=== PATIENT | female | born 1940 | race Caucasian/White ===

== ENCOUNTER 2020-01-20 14:38 | Emergency (ER) | payer OTHER ==
[~2020-01-20] VITALS: Ht 165.1 cm; Wt 28.8 kg
[2020-01-20] MEDS ORDERED: SODIUM CHLORIDE 0.9% 500 ML IV ONE (16:00)
[2020-01-20] MEDS ORDERED: SODIUM CHLORIDE 0.9% 1,000 ML IV ONE (16:00)
[2020-01-20 16:13] LABS: Basophils # (auto) 0.1 10 ^3/uL (0-0.2); Basophils % (auto) 0.8 % (0.0-2.0); Eosinophils # (auto) 0 10 ^3/uL (0-0.8); Eosinophils % (auto) 0.2 % (0.0-7.0); Hematocrit 27.7 % (36.0-46.0); Hemoglobin 9.2 g/dL (12.2-16.2); Lymphocytes # (auto) 0.7 10 ^3/uL (0.4-5.4); Lymphocytes % (auto) 8.7 % (10.0-50.0); Mean Corpuscular Hemoglobin 31.7 pg (28.0-32.0); Mean Corpuscular Hgb Conc. 33.4 g/dL (32.0-36.0); Mean Corpuscular Volume 95.1 fL (80.0-100.0); Monocytes # (auto) 0.5 10 ^3/uL (0-1.3); Monocytes % (auto) 6.4 % (0.0-12.0); Neutrophils # (auto) 6.3 10 ^3/uL (1.6-8.6); Neutrophils % (auto) 83.9 % (37.0-80.0); Platelet Count (auto) 366 10^3/uL (140-450); Red Blood Cells 2.91 10^6/uL (4.0-5.20); Red Cell Distribution Width 13.8 % (11.8-14.3); White Blood Cell 7.5 10^3/uL (4.4-10.8)
[2020-01-20 17:18] LABS: BUN/Creatinine Ratio 54.9; Bilirubin, Total 0.1 mg/dL (0.2-1.0); Calcium 7.8 mg/dL (8.5-10.1); Potassium 4.1 mmol/L (3.5-5.1)
[2020-01-20 17:19] LABS: Albumin 2.9 g/dL (3.4-5.0)
[2020-01-20 17:25] LABS: Magnesium 2.2 mg/dL (1.6-2.6)
[2020-01-20 19:10] LABS: INR 0.99 (0.9-1.15); Partial Thromboplastin Time 20.1 sec (23.0-31.2)
[2020-01-20] MEDS ORDERED: CYAN1TAB11 PO (19:54)
[2020-01-20] MEDS ORDERED: LAMO25TA2 PO (19:54)
[2020-01-20] MEDS ORDERED: CHOL200010 PO (19:54)
[2020-01-20] MEDS ORDERED: OMEP-260 PO (19:54)
[2020-01-20] MEDS ORDERED: FLUO1TAB14 PO (19:54)
[2020-01-20] MEDS ORDERED: OYST500T29 PO (19:54)
[2020-01-20] MEDS ORDERED: ASPI-498 PO (19:56)
[2020-01-20] MEDS ORDERED: IBUP200C95 PO (19:56)
[2020-01-20] MEDS ORDERED: ATOR10TA52 PO (19:57)
[2020-01-20 20:00] VITALS: BP 101/44
[2020-01-20 20:16] LABS: Urine Bacteria FEW /hpf (None Seen); Urine Blood Negative /uL (Negative); Urine Specific Gravity 1.017 (1.001-1.035); Urine WBC 5 /hpf (0 - 5)
== END 2020-01-20 21:28 | disposition home or self-care (01) ==
LOC: ER 14:38
DX: K92.2 Gastrointestinal hemorrhage, unspecified (principal); D50.0 Iron deficiency anemia secondary to blood loss (chronic); K44.9 Diaphragmatic hernia without obstruction or gangrene; Z88.0 Allergy status to penicillin; Z88.2 Allergy status to sulfonamides
CPT/HCPCS: 36415; 71046; 74176; 80053; 81001; 83690; 83735; 84443; 85025; 85610; 85730; 86850; 86900; 86901; 96360; 96361